=== PATIENT | male | born 1950 | race Caucasian/White ===

== ENCOUNTER 2023-09-07 12:08 | Outpatient (CLI) | payer MEDICARE, SELFPAY ==
--- NOTE | ~2023-09-07 | MR_ITS ---
EXAMINATION: MR abdomen wo/w con DATE: 09/07/2023 13:19 INDICATION: Renal cyst TECHNIQUE: Magnetic resonance imaging (MRI) of the abdomen was performed without and with 20 mL Multi nicolás intravenous contrast. Sequences included coronal T2-weighted SS-FSE, coronal and axial FS 2D-F IESTA, axial STIR FSE, axial T2-weighted SS-FSE, axial T2-weighted FS SS-FSE, axial diffusion-weighte d SE, axial dual-echo T1-weighted FSPGR, and axial and coronal T1-weighted LAVA. Postcontrast axial T 1-weighted LAVA images were obtained in a time course. Postcontrast coronal T1-weighted LAVA images w ere obtained. COMPARISON: None. FINDINGS: Prominent elevation of the left hemidiaphragm. Heart size is normal. No pericardial or pleural effusi on. Diffuse hepatic steatosis. Splenomegaly measuring 15.3 cm craniocaudal length. Pancreas and bilat eral adrenal glands are normal. 7 mm defect along the posterior medial cortex of the interpolar regio n of the right kidney which could represent either focal region of atrophy or an angiomyolipoma. 2.5 cm heterogeneously enhancing mass at the upper pole of the right kidney consistent with renal cell ca rcinoma. 5 mm T2 hyperintense nonenhancing cyst at the lateral interpolar region of the right kidney. Status post right hemicolectomy with ileocolic anastomosis in the left abdomen. No pathologically en larged abdominal or upper pelvic lymphadenopathy. Severe lumbar spondylosis. No bone lesions suspicio us for metastatic disease. IMPRESSION: 1. 2.5 cm enhancing mass at the upper pole the right kidney consistent with renal cell carcinoma. 2. Diffuse hepatic steatosis. 3. Cholelithiasis. 4. Marked elevation the left hemidiaphragm suggesting left phrenic nerve palsy. Reviewed, dictated and finalized at location A. IAL EFFECTS MAKEUP ARTIST IMPRESSION: 1. 2.5 cm enhancing mass at the upper pole the right kidney consistent with joaquín al cell carcinoma. 2. Diffuse hepatic steatosis. 3. Cholelithiasis. 4. Marked elevation the left hemidiaphragm suggesting left phrenic nerve palsy.
== END 2023-09-07 12:09 ==
LOC: GOSHIMG 12:11
PROVIDERS: PCP Urology; Visit Provider Urology
DX: N28.89 Other specified disorders of kidney and ureter (principal); K76.0 Fatty (change of) liver, not elsewhere classified; K80.20 Calculus of gallbladder without cholecystitis without obstruction
CPT/HCPCS: 74183; A9577